=== PATIENT | female | born 1960 | race Caucasian/White ===

== ENCOUNTER → 2016-07-18 | Outpatient (CLI) | payer OTHER ==
[~2016-07-18] MED LIST: ISOVUE-370 76% 100ML VIAL (Q9967) As Ordered ONE
--- NOTE | 2016-07-23 02:34 | REP ---
Clinical: Fistula. Technique: Axial contrast enhanced images from the lung bases to the pubic symphysis using 100 ml Isovue 370 intravenous contrast material with coronal and sagittal re-formations. Note: Evaluation is being performed without prior examinations for comparison due to the acute, significant nature of findings. Reevaluation can be made if and when prior examinations are available for comparison. Findings: Lung bases demonstrate bibasilar atelectasis. There appears to be a draining, anterior midline abdominopelvic surgical incision with underlying loops of bowel extending to the surface. Extensive postsurgical and inflammatory changes are appreciated throughout the abdomen and pelvis including what may represent a discrete fluid collection/abscess along the left pericolic gutter measuring approximately 3.8 x 3.5 x 2.8 cm (images 72 - 88). Further small fluid collection/phlegmonous changes within the abdomen and pelvis cannot be excluded and complete evaluation is significantly limited due to the lack of intraluminal contrast to define bowel. There is no evidence for bowel obstruction with dilated loops, but the residual rectosigmoid demonstrates heterogeneous prominence (images 116 - 136). There appears to be a prominent amount of gas within the presumed cervix (images 119 - 137) and associated enterovaginal fistula cannot be excluded. The bladder appears collapsed. A percutaneous gastrostomy tube is identified through the left anterior abdominal wall. No obvious ascites or free air noted. Scattered reactive lymph nodes within the mesentery are suggested. Hepatosplenomegaly is suggested without focal hepatic or splenic lesion identified. The pancreas is unremarkable. The gallbladder appears normal although mild intrahepatic and extrahepatic biliary ductal dilatation without obvious obstruction is suggested and may warrant evaluation by ultrasound. The bilateral adrenal glands and kidneys appear normal. No significant retroperitoneal adenopathy noted. Abdominal aorta and vasculature without aneurysm or significant atherosclerotic changes. Musculoskeletal structures appear intact without focal osseous abnormality. Impression: 1. Extensive postsurgical changes as noted above with suspected superimposed acute infectious/inflammatory findings including intra-abdominal/pelvic stranding, phlegmonous changes and abscess. Fistula cannot be excluded based on current examination. 2. Air within the presumed cervix cannot exclude underlying enterovaginal fistula. 3. Heterogeneous fullness to what appears to be residual rectosigmoid within the pelvis. 4. No ascites or free air. 5. Hepatic splenomegaly cannot be excluded. 6. Element of biliary ductal dilatation without obvious obstructing lesion and no evidence for gallbladder distension or acute cholecystitis by current imaging. 7. Bibasilar atelectasis. Signed by Edmundo Dyson MD 07/23/2016 02:26 A
== END ==
LOC: M RAD 15:38
PROVIDERS: ATTEND Surgery
DX: K65.1 Peritoneal abscess (principal)